=== PATIENT | male | born 1935 | race Asian ===

== ENCOUNTER 2019-11-24 12:50 | Emergency (ER) | payer OTHER ==
[~2019-11-24] VITALS: Ht 165.1 cm; Wt 59.1 kg
[2019-11-24] MEDS ORDERED: LOSA-88 PO (13:15)
[2019-11-24] MEDS ORDERED: ACETAMINOPHEN 500 MG TABLET PO ONE (14:30)
[2019-11-24 15:35] VITALS: BP 148/81
== END 2019-11-24 15:44 | disposition home or self-care (01) ==
LOC: EMS 12:53
DX: M25.541 Pain in joints of right hand (principal); I10 Essential (primary) hypertension

== ENCOUNTER 2020-08-12 15:24 | Emergency (ER) | payer OTHER ==
[~2020-08-12] VITALS: Ht 162.6 cm; Wt 51.8 kg
[~2020-08-12 15:24] MED LIST: LOSA50TA37 PO
[2020-08-12] MEDS ORDERED: AMLO-257 PO (15:40)
[2020-08-12 20:00] VITALS: BP 141/69
== END 2020-08-12 20:54 | disposition home or self-care (01) ==
LOC: EMS 15:24
DX: S16.1XXA Strain of muscle, fascia and tendon at neck level, initial encounter (principal); V49.9XXA Car occupant (driver) (passenger) injured in unspecified traffic accident, initial encounter; Y93.89 Activity, other specified; Y92.89 Other specified places as the place of occurrence of the external cause; Y99.8 Other external cause status
CPT/HCPCS: 72040; 71045-TC

== ENCOUNTER 2022-03-18 09:31 | Inpatient (IN) | payer OTHER ==
[~2022-03-18] VITALS: Ht 165.1 cm; Wt 48.0 kg
[~2022-03-18 09:31] MED LIST changes: +AMLO-257 PO; +LOSA-382 PO; -LOSA50TA37 PO
[2022-03-18] MEDS ORDERED: 0.9% SODIUM CHLORIDE 10 ML SYRINGE IVP PRN ×2 (10:15→13:00)
[2022-03-18 10:36] LABS: COVID AG,FIA SOURCE NASOPHARYNGEAL
[2022-03-18] MEDS ORDERED: SODIUM CHLORIDE 0.9% 1,000 ML IV ONE (10:45)
[2022-03-18] MEDS ORDERED: ACETAMINOPHEN 1000 MG/ISO-OSM 100 ML IV ONE (10:45)
[2022-03-18 10:47] LABS: BASOPHILS % (AUTO) 0.2 % (0.0-2.0); EOSINOPHILS % (AUTO) 0.1 % (1.0-6.0); HEMATOCRIT 31.6 % (41-53); HEMOGLOBIN 10.6 g/dL (13.5-17.5); LYMPHOCYTES # (AUTO) 0.4 K/uL (1.0-4.8); LYMPHOCYTES % (AUTO) 11.5 % (22.0-44.0); MEAN CORPUSCULAR HEMOGLOBIN 31.9 pg (26.0-34.0); MEAN CORPUSCULAR HGB CONC 33.5 G/dL (31.0-37.0); MEAN CORPUSCULAR VOLUME 95 fL (80-100); MONOCYTES # (AUTO) 0.5 K/uL (0.1-1.0); MONOCYTES % (AUTO) 14.5 % (2.0-9.0); NEUTROPHILS # (AUTO) 2.4 K/uL (1.8-7.7); NEUTROPHILS % (AUTO) 73.7 % (40.0-70.0); PLATELET COUNT (AUTO) 138 K/uL (150-450); RED BLOOD CELL COUNT(AUTO) 3.32 MIL/uL (4.50-5.90)
[2022-03-18] MEDS ORDERED: FLUT16H NASAL (10:47)
[2022-03-18] MEDS ORDERED: TAMS-13 PO (10:47)
[2022-03-18] MEDS ORDERED: APIX2.5T PO (10:47)
[2022-03-18] MEDS ORDERED: DORZ10DR10 OU (10:47)
[2022-03-18] MEDS ORDERED: BRIM15DR8 OU (10:47)
[2022-03-18] MEDS ORDERED: AMLO5TAB66 PO (10:47)
[2022-03-18] MEDS ORDERED: LATA2.5D14 OU (10:47)
[2022-03-18 10:57] LABS: CALCIUM, TOTAL 8.9 mg/dL (8.8-10.5); CREATININE 1.46 mg/dL (0.60-1.30); POTASSIUM 3.3 mmol/L (3.5-5.1)
[2022-03-18 10:57] LABS: INFLUENZA TYPE A NEGATIVE FOR TYPE A (NEGATIVE); INFLUENZA TYPE B NEGATIVE FOR TYPE B (NEGATIVE)
[2022-03-18 10:59] LABS: INR 1.1 (0.9-1.1); PROTHROMBIN TIME 11.7 SEC (9.4-11.6)
[2022-03-18 11:30] LABS: ALBUMIN 3.2 g/dL (3.4-5.0); BILIRUBIN,TOTAL 0.4 mg/dL (0.1-1.0); C-REACTIVE PROTEIN QUANT 5.7 mg/dL (0.00-0.30); MAGNESIUM 1.9 mg/dL (1.80-2.40); PHOSPHORUS 2.9 mg/dL (2.5-4.9); TOTAL PROTEIN, SERUM 6.5 g/dL (6.4-8.2)
[2022-03-18 11:36] LABS: APPEARANCE,URINE CLEAR (CLEAR); BILIRUBIN,URINE NEGATIVE (NEGATIVE); GLUCOSE, URINE (UA) NEGATIVE (NEGATIVE); KETONES,URINE TRACE mg/dL (NEGATIVE); LEUKOCYTE ESTERASE ,URINE NEGATIVE (NEGATIVE); NITRATE,URINE NEGATIVE (NEGATIVE); OCCULT BLOOD,URINE SMALL (NEGATIVE); PH,URINE 5.5 (5.0-8.0); PROTEIN,URINE 100-200,SEE CONFIRM mg/dL (NEGATIVE); SPECIFIC GRAVITIY, URINE 1.026 (1.003-1.030); UROBILINOGEN,URINE <=1.0 mg/dL (<=1.0)
[2022-03-18 11:51] LABS: BACTERIA,URINE None Seen /HPF (None Seen); RBC,URINE 0-2 /HPF (0-2); SQUAMOUS EPITHELIAL CELL,UR Few /LPF (None Seen); SULFOSALICYLIC ACID,URINE 1+ (Negative); WBC,URINE None Seen /HPF (0-5)
[2022-03-18] MEDS ORDERED: ONDANSETRON HCL 4 MG/2 ML VIAL IVP PRN ×2 (13:00→17:15)
[2022-03-18] MEDS ORDERED: ACETAMINOPHEN 325 MG TABLET PO PRN (13:00)
[2022-03-18 16:31] VITALS: BP 160/69
[2022-03-18] MEDS ORDERED: HYDROCODONE/ACETAMINOPHEN 5-325 MG TABLET PO PRN (17:15)
[2022-03-18] MEDS ORDERED: ZOLPIDEM TARTRATE 5 MG TABLET PO PRN (17:15)
[2022-03-18] MEDS ORDERED: BISACODYL 10 MG RECTAL RECTAL SUPPOSITORY PR PRN (17:15)
[2022-03-18] MEDS ORDERED: ALBUTEROL SULFATE 2.5 MG/0.5 ML NEB SOLUTION NEB PRN (17:15)
[2022-03-18] MEDS ORDERED: MAGNESIUM HYDROXIDE SUSPENSION 30 ML UDCUP PO PRN (17:15)
[2022-03-18] MEDS ORDERED: IPRATROPIUM BROMIDE 0.5 MG/2.5 ML NEB SOLUTION NEB PRN (17:15)
[2022-03-18] MEDS ORDERED: MORPHINE SULFATE 2 MG/ML SYRINGE IVP PRN (17:15)
[2022-03-18 19:05] VITALS: BP 148/61
[2022-03-18] MEDS ORDERED: POTASSIUM CHLORIDE 20 MEQ ER TABLET PO ONE (21:00)
[2022-03-18] MEDS: APIXABAN 2.5 MG TABLET PO SCH (21:52)
[2022-03-18] MEDS: BRIMONIDINE TARTRATE 0.2% 5 ML OPHTHALMIC SOLUTION OU SCH (21:53)
[2022-03-18] MEDS: DORZOLAMIDE/TIMOLOL 2-0.5% [22.3-6.8MG/ML] 10 ML OPHTHALMIC SOLUTION OU SCH (21:53)
[2022-03-18] MEDS: LATANOPROST 0.005% 2.5 ML OPHTHALMIC SOLUTION OU SCH (21:53)
[2022-03-18] MEDS: DOCUSATE SODIUM 100 MG CAPSULE PO SCH (21:54)
[2022-03-18 23:30] VITALS: BP 140/71
[2022-03-19 03:30] VITALS: BP 143/63
[2022-03-19 06:14] LABS: BASOPHILS % (AUTO) 0.1 % (0.0-2.0); EOSINOPHILS % (AUTO) 0 % (1.0-6.0); HEMATOCRIT 31.6 % (41-53); HEMOGLOBIN 10.7 g/dL (13.5-17.5); LYMPHOCYTES # (AUTO) 0.9 K/uL (1.0-4.8); MEAN CORPUSCULAR HEMOGLOBIN 32.1 pg (26.0-34.0); MEAN CORPUSCULAR VOLUME 94 fL (80-100); MONOCYTES # (AUTO) 0.6 K/uL (0.1-1.0); MONOCYTES % (AUTO) 11.3 % (2.0-9.0); NEUTROPHILS # (AUTO) 3.6 K/uL (1.8-7.7); NEUTROPHILS % (AUTO) 70.6 % (40.0-70.0); PLATELET COUNT (AUTO) 121 K/uL (150-450); RED BLOOD CELL COUNT(AUTO) 3.35 MIL/uL (4.50-5.90); RED CELL DISTRIBUTION WIDTH 13.7 % (11.5-14.5)
[2022-03-19 06:33] LABS: ALBUMIN 2.8 g/dL (3.4-5.0); BILIRUBIN,TOTAL 0.4 mg/dL (0.1-1.0); CALCIUM, TOTAL 8.4 mg/dL (8.8-10.5); CREATININE 1.17 mg/dL (0.60-1.30); POTASSIUM 3.4 mmol/L (3.5-5.1)
[2022-03-19] MEDS: FLUTICASONE PROPIONATE 50 MCG/SPRAY 16 GM NASAL SPRAY NASAL SCH (08:03)
[2022-03-19] MEDS: PANTOPRAZOLE SODIUM 40 MG/VIAL IVP SCH (08:03)
[2022-03-19] MEDS: LOSARTAN POTASSIUM 50 MG TABLET PO SCH (08:04)
[2022-03-19] MEDS: DOCUSATE SODIUM 100 MG CAPSULE PO SCH ×2 (08:04→21:59)
[2022-03-19] MEDS: TAMSULOSIN HCL 0.4 MG CAPSULE PO SCH (08:04)
[2022-03-19] MEDS: APIXABAN 2.5 MG TABLET PO SCH ×2 (08:04→21:59)
[2022-03-19] MEDS: AmLODIPine BESYLATE 5 MG TABLET PO SCH (08:04)
[2022-03-19 08:05] VITALS: BP 153/66
[2022-03-19] MEDS: BRIMONIDINE TARTRATE 0.2% 5 ML OPHTHALMIC SOLUTION OU SCH ×2 (08:05→21:59)
[2022-03-19] MEDS: LATANOPROST 0.005% 2.5 ML OPHTHALMIC SOLUTION OU SCH (08:05)
[2022-03-19] MEDS: DORZOLAMIDE/TIMOLOL 2-0.5% [22.3-6.8MG/ML] 10 ML OPHTHALMIC SOLUTION OU SCH ×2 (08:05→21:59)
[2022-03-19] MEDS: ACETAMINOPHEN 325 MG TABLET PO PRN ×2 (11:25→21:58)
[2022-03-19 11:34] VITALS: BP 130/58
[2022-03-19 16:11] VITALS: BP 126/52
[2022-03-19] MEDS ORDERED: POTASSIUM CHLORIDE 20 MEQ ER TABLET PO ONE (18:00)
[2022-03-19] MEDS: DEXTROSE 5%-0.45% SODIUM CHL 1,000 ML IV SCH (18:04)
[2022-03-19 20:17] VITALS: BP 127/48
[2022-03-19 22:20] LABS: BASOPHILS % (AUTO) 0.2 % (0.0-2.0); EOSINOPHILS % (AUTO) 0 % (1.0-6.0); HEMATOCRIT 36.8 % (41-53); HEMOGLOBIN 12.3 g/dL (13.5-17.5); LYMPHOCYTES # (AUTO) 1.8 K/uL (1.0-4.8); LYMPHOCYTES % (AUTO) 30.9 % (22.0-44.0); MEAN CORPUSCULAR HEMOGLOBIN 31.9 pg (26.0-34.0); MEAN CORPUSCULAR HGB CONC 33.6 G/dL (31.0-37.0); MEAN CORPUSCULAR VOLUME 95 fL (80-100); MONOCYTES # (AUTO) 0.4 K/uL (0.1-1.0); MONOCYTES % (AUTO) 7.6 % (2.0-9.0); NEUTROPHILS # (AUTO) 3.5 K/uL (1.8-7.7); NEUTROPHILS % (AUTO) 61.3 % (40.0-70.0); PLATELET COUNT (AUTO) 129 K/uL (150-450); RED BLOOD CELL COUNT(AUTO) 3.88 MIL/uL (4.50-5.90); RED CELL DISTRIBUTION WIDTH 13.9 % (11.5-14.5)
[2022-03-19 22:44] LABS: BILIRUBIN,TOTAL 0.3 mg/dL (0.1-1.0); CALCIUM, TOTAL 8.6 mg/dL (8.8-10.5); CREATININE 1.39 mg/dL (0.60-1.30); POTASSIUM 3.9 mmol/L (3.5-5.1); TOTAL PROTEIN, SERUM 6.8 g/dL (6.4-8.2)
[2022-03-19 23:34] LABS: C-REACTIVE PROTEIN QUANT 7.79 mg/dL (0.00-0.30)
[2022-03-19] MEDS ORDERED: REMDESIVIR 200 MG in SODIUM CHLORIDE 0.9% 250 ML IV ONE (23:45)
[2022-03-20 00:09] VITALS: BP 123/45
[2022-03-20] MEDS: DEXTROSE 5%-0.45% SODIUM CHL 1,000 ML IV SCH ×2 (02:49→15:13)
[2022-03-20] MEDS: ACETAMINOPHEN 325 MG TABLET PO PRN ×2 (05:05→09:49)
[2022-03-20 05:18] VITALS: BP 132/66
[2022-03-20 06:22] LABS: BASOPHILS % (AUTO) 0.3 % (0.0-2.0); EOSINOPHILS % (AUTO) 0.1 % (1.0-6.0); HEMATOCRIT 30.3 % (41-53); HEMOGLOBIN 10.3 g/dL (13.5-17.5); LYMPHOCYTES # (AUTO) 0.7 K/uL (1.0-4.8); LYMPHOCYTES % (AUTO) 15.8 % (22.0-44.0); MEAN CORPUSCULAR VOLUME 94 fL (80-100); MONOCYTES # (AUTO) 0.3 K/uL (0.1-1.0); MONOCYTES % (AUTO) 6.7 % (2.0-9.0); NEUTROPHILS # (AUTO) 3.6 K/uL (1.8-7.7); NEUTROPHILS % (AUTO) 77.1 % (40.0-70.0); PLATELET COUNT (AUTO) 108 K/uL (150-450); RED BLOOD CELL COUNT(AUTO) 3.22 MIL/uL (4.50-5.90); RED CELL DISTRIBUTION WIDTH 13.6 % (11.5-14.5)
[2022-03-20 07:05] LABS: ALANINE AMINOTRANSFERASE 31 U/L (12-78); ALBUMIN 2.3 g/dL (3.4-5.0); ALKALINE PHOSPHATASE 43 U/L (46-116); ANION GAP 9 mmol/L (8-16); ASPARTATE AMINOTRANSFERASE 41 U/L (15-37); BILIRUBIN,TOTAL 0.2 mg/dL (0.1-1.0); C-REACTIVE PROTEIN QUANT 6.63 mg/dL (0.00-0.30); CALCIUM, TOTAL 7.8 mg/dL (8.8-10.5); CARBON DIOXIDE 24 mmol/L (22-29); CHLORIDE 106 mmol/L (98-107); CREATININE 1.12 mg/dL (0.60-1.30); FERRITIN 814 ng/mL (26-388); GLUCOSE,RANDOM 156 mg/dL (70-110); POTASSIUM 3.8 mmol/L (3.5-5.1); SODIUM SERUM 139 mmol/L (136-145); TOTAL PROTEIN, SERUM 5.4 g/dL (6.4-8.2); UREA NITROGEN, BLOOD 16 mg/dL (7-18)
[2022-03-20 07:12] LABS: GLOMERULAR FILTR. RATE CALC > 60 mL/min (>60)
[2022-03-20 09:41] VITALS: BP 133/64
[2022-03-20] MEDS: APIXABAN 2.5 MG TABLET PO SCH ×2 (09:49→21:46)
[2022-03-20] MEDS: LOSARTAN POTASSIUM 50 MG TABLET PO SCH (09:50)
[2022-03-20] MEDS: DORZOLAMIDE/TIMOLOL 2-0.5% [22.3-6.8MG/ML] 10 ML OPHTHALMIC SOLUTION OU SCH ×2 (09:50→21:45)
[2022-03-20] MEDS: BRIMONIDINE TARTRATE 0.2% 5 ML OPHTHALMIC SOLUTION OU SCH ×2 (09:50→21:45)
[2022-03-20] MEDS: TAMSULOSIN HCL 0.4 MG CAPSULE PO SCH (09:50)
[2022-03-20] MEDS: AmLODIPine BESYLATE 5 MG TABLET PO SCH (09:50)
[2022-03-20] MEDS: FLUTICASONE PROPIONATE 50 MCG/SPRAY 16 GM NASAL SPRAY NASAL SCH (09:50)
[2022-03-20] MEDS: PANTOPRAZOLE SODIUM 40 MG/VIAL IVP SCH (09:50)
[2022-03-20] MEDS: DOCUSATE SODIUM 100 MG CAPSULE PO SCH ×2 (09:50→21:46)
[2022-03-20] MEDS ORDERED: SODIUM CHLORIDE 0.9% 1,000 ML ONE (11:36)
[2022-03-20 11:56] VITALS: BP 124/65
[2022-03-20] MEDS: CefTRIAXone 1 GM/DEXTROSE 50 ML IV SCH (12:41)
[2022-03-20] MEDS: AZITHROMYCIN 500 MG TABLET PO SCH (13:33)
[2022-03-20 15:22] VITALS: BP 110/61
[2022-03-20 20:26] VITALS: BP 129/50
[2022-03-20] MEDS: LATANOPROST 0.005% 2.5 ML OPHTHALMIC SOLUTION OU SCH (21:46)
[2022-03-20] MEDS: REMDESIVIR 100 MG in SODIUM CHLORIDE 0.9% 250 ML IV SCH (23:45)
[2022-03-21 00:10] VITALS: BP 138/59
[2022-03-21 04:19] VITALS: BP 135/63
[2022-03-21] MEDS: DEXTROSE 5%-0.45% SODIUM CHL 1,000 ML IV SCH (05:37)
[2022-03-21 05:59] LABS: BASOPHILS % (AUTO) 0.1 % (0.0-2.0); EOSINOPHILS % (AUTO) 0.1 % (1.0-6.0); HEMATOCRIT 30.4 % (41-53); HEMOGLOBIN 10.3 g/dL (13.5-17.5); LYMPHOCYTES # (AUTO) 1.1 K/uL (1.0-4.8); MEAN CORPUSCULAR HEMOGLOBIN 31.9 pg (26.0-34.0); MEAN CORPUSCULAR VOLUME 94 fL (80-100); MONOCYTES # (AUTO) 0.4 K/uL (0.1-1.0); MONOCYTES % (AUTO) 9.9 % (2.0-9.0); NEUTROPHILS # (AUTO) 2.5 K/uL (1.8-7.7); NEUTROPHILS % (AUTO) 61.9 % (40.0-70.0); PLATELET COUNT (AUTO) 102 K/uL (150-450); RED BLOOD CELL COUNT(AUTO) 3.24 MIL/uL (4.50-5.90); RED CELL DISTRIBUTION WIDTH 13.9 % (11.5-14.5)
[2022-03-21 06:31] LABS: ALANINE AMINOTRANSFERASE 32 U/L (12-78); ALBUMIN 2.3 g/dL (3.4-5.0); ALKALINE PHOSPHATASE 41 U/L (46-116); ANION GAP 12 mmol/L (8-16); ASPARTATE AMINOTRANSFERASE 42 U/L (15-37); BILIRUBIN,TOTAL 0.2 mg/dL (0.1-1.0); C-REACTIVE PROTEIN QUANT 6.27 mg/dL (0.00-0.30); CARBON DIOXIDE 23 mmol/L (22-29); CHLORIDE 105 mmol/L (98-107); CREATININE 0.91 mg/dL (0.60-1.30); FERRITIN 843 ng/mL (26-388); GLUCOSE,RANDOM 128 mg/dL (70-110); POTASSIUM 3.3 mmol/L (3.5-5.1); SODIUM SERUM 140 mmol/L (136-145); TOTAL PROTEIN, SERUM 5.4 g/dL (6.4-8.2); UREA NITROGEN, BLOOD 14 mg/dL (7-18)
[2022-03-21 06:36] LABS: GLOMERULAR FILTR. RATE CALC > 60 mL/min (>60)
[2022-03-21 08:00] VITALS: BP 136/62
[2022-03-21] MEDS: PANTOPRAZOLE SODIUM 40 MG/VIAL IVP SCH (08:36)
[2022-03-21] MEDS: DOCUSATE SODIUM 100 MG CAPSULE PO SCH ×2 (08:36→20:14)
[2022-03-21] MEDS: FLUTICASONE PROPIONATE 50 MCG/SPRAY 16 GM NASAL SPRAY NASAL SCH (08:36)
[2022-03-21] MEDS: BRIMONIDINE TARTRATE 0.2% 5 ML OPHTHALMIC SOLUTION OU SCH ×2 (08:36→21:56)
[2022-03-21] MEDS: DORZOLAMIDE/TIMOLOL 2-0.5% [22.3-6.8MG/ML] 10 ML OPHTHALMIC SOLUTION OU SCH ×2 (08:36→21:56)
[2022-03-21] MEDS: AmLODIPine BESYLATE 5 MG TABLET PO SCH (08:37)
[2022-03-21] MEDS: AZITHROMYCIN 500 MG TABLET PO SCH (08:37)
[2022-03-21] MEDS: TAMSULOSIN HCL 0.4 MG CAPSULE PO SCH (08:37)
[2022-03-21] MEDS: LOSARTAN POTASSIUM 50 MG TABLET PO SCH (08:37)
[2022-03-21] MEDS: APIXABAN 2.5 MG TABLET PO SCH ×2 (08:37→21:56)
[2022-03-21 11:58] VITALS: BP 144/55
[2022-03-21] MEDS: CefTRIAXone 1 GM/DEXTROSE 50 ML IV SCH (11:59)
[2022-03-21 15:21] VITALS: BP 139/70
[2022-03-21] MEDS ORDERED: POTASSIUM CHLORIDE 20 MEQ ER TABLET PO ONE (16:15)
[2022-03-21 20:10] VITALS: BP 139/77
[2022-03-21 21:21] LABS: C.DIFF GDH ANTIGEN, Stool Negative (Negative); C.DIFF TOXINS A&B, Stool Negative (Negative)
[2022-03-21] MEDS: LATANOPROST 0.005% 2.5 ML OPHTHALMIC SOLUTION OU SCH (21:57)
[2022-03-22] VITALS (7 sets, daily range): BP systolic 104–154; BP diastolic 56–88
[2022-03-22] MEDS: REMDESIVIR 100 MG in SODIUM CHLORIDE 0.9% 250 ML IV SCH (00:02)
[2022-03-22 06:37] LABS: BASOPHILS % (AUTO) 0.1 % (0.0-2.0); EOSINOPHILS % (AUTO) 0.2 % (1.0-6.0); HEMOGLOBIN 10.4 g/dL (13.5-17.5); LYMPHOCYTES # (AUTO) 1.2 K/uL (1.0-4.8); LYMPHOCYTES % (AUTO) 30.4 % (22.0-44.0); MEAN CORPUSCULAR HEMOGLOBIN 32.2 pg (26.0-34.0); MEAN CORPUSCULAR HGB CONC 34.7 G/dL (31.0-37.0); MEAN CORPUSCULAR VOLUME 93 fL (80-100); MONOCYTES # (AUTO) 0.4 K/uL (0.1-1.0); MONOCYTES % (AUTO) 9.6 % (2.0-9.0); NEUTROPHILS # (AUTO) 2.3 K/uL (1.8-7.7); NEUTROPHILS % (AUTO) 59.7 % (40.0-70.0); PLATELET COUNT (AUTO) 114 K/uL (150-450); RED BLOOD CELL COUNT(AUTO) 3.23 MIL/uL (4.50-5.90); RED CELL DISTRIBUTION WIDTH 13.9 % (11.5-14.5)
[2022-03-22 06:59] LABS: ALANINE AMINOTRANSFERASE 30 U/L (12-78); ALBUMIN 2.3 g/dL (3.4-5.0); ALKALINE PHOSPHATASE 43 U/L (46-116); ANION GAP 9 mmol/L (8-16); ASPARTATE AMINOTRANSFERASE 35 U/L (15-37); BILIRUBIN,TOTAL 0.3 mg/dL (0.1-1.0); C-REACTIVE PROTEIN QUANT 3.43 mg/dL (0.00-0.30); CARBON DIOXIDE 22 mmol/L (22-29); CHLORIDE 106 mmol/L (98-107); CREATININE 0.86 mg/dL (0.60-1.30); FERRITIN 935 ng/mL (26-388); GLUCOSE,RANDOM 110 mg/dL (70-110); POTASSIUM 3.5 mmol/L (3.5-5.1); SODIUM SERUM 137 mmol/L (136-145); TOTAL PROTEIN, SERUM 5.2 g/dL (6.4-8.2); UREA NITROGEN, BLOOD 11 mg/dL (7-18)
[2022-03-22 07:05] LABS: GLOMERULAR FILTR. RATE CALC > 60 mL/min (>60)
[2022-03-22] MEDS: AZITHROMYCIN 500 MG TABLET PO SCH (08:24)
[2022-03-22] MEDS: TAMSULOSIN HCL 0.4 MG CAPSULE PO SCH (08:24)
[2022-03-22] MEDS: AmLODIPine BESYLATE 5 MG TABLET PO SCH (08:24)
[2022-03-22] MEDS: APIXABAN 2.5 MG TABLET PO SCH ×2 (08:24→21:45)
[2022-03-22] MEDS: FLUTICASONE PROPIONATE 50 MCG/SPRAY 16 GM NASAL SPRAY NASAL SCH (08:25)
[2022-03-22] MEDS: DORZOLAMIDE/TIMOLOL 2-0.5% [22.3-6.8MG/ML] 10 ML OPHTHALMIC SOLUTION OU SCH ×2 (08:25→21:46)
[2022-03-22] MEDS: BRIMONIDINE TARTRATE 0.2% 5 ML OPHTHALMIC SOLUTION OU SCH ×2 (08:25→21:46)
[2022-03-22] MEDS: DOCUSATE SODIUM 100 MG CAPSULE PO SCH ×2 (08:25→21:00)
[2022-03-22] MEDS: PANTOPRAZOLE SODIUM 40 MG/VIAL IVP SCH (08:25)
[2022-03-22] MEDS: LOSARTAN POTASSIUM 50 MG TABLET PO SCH (08:31)
[2022-03-22] MEDS: CefTRIAXone 1 GM/DEXTROSE 50 ML IV SCH (12:51)
[2022-03-22] MEDS: LATANOPROST 0.005% 2.5 ML OPHTHALMIC SOLUTION OU SCH (21:46)
[2022-03-23] MEDS: REMDESIVIR 100 MG in SODIUM CHLORIDE 0.9% 250 ML IV SCH ×2 (00:01→23:35)
[2022-03-23 06:30] VITALS: BP 154/65
[2022-03-23 07:21] LABS: BASOPHILS % (AUTO) 0.2 % (0.0-2.0); EOSINOPHILS % (AUTO) 0.5 % (1.0-6.0); HEMATOCRIT 31.8 % (41-53); LYMPHOCYTES # (AUTO) 1.1 K/uL (1.0-4.8); LYMPHOCYTES % (AUTO) 30.5 % (22.0-44.0); MEAN CORPUSCULAR HEMOGLOBIN 31.7 pg (26.0-34.0); MEAN CORPUSCULAR HGB CONC 34.5 G/dL (31.0-37.0); MEAN CORPUSCULAR VOLUME 92 fL (80-100); MONOCYTES # (AUTO) 0.4 K/uL (0.1-1.0); MONOCYTES % (AUTO) 11.4 % (2.0-9.0); NEUTROPHILS # (AUTO) 2.1 K/uL (1.8-7.7); NEUTROPHILS % (AUTO) 57.4 % (40.0-70.0); PLATELET COUNT (AUTO) 145 K/uL (150-450); RED BLOOD CELL COUNT(AUTO) 3.46 MIL/uL (4.50-5.90); RED CELL DISTRIBUTION WIDTH 13.7 % (11.5-14.5)
[2022-03-23 07:46] LABS: ALANINE AMINOTRANSFERASE 56 U/L (12-78); ALBUMIN 2.4 g/dL (3.4-5.0); ALKALINE PHOSPHATASE 51 U/L (46-116); ANION GAP 8 mmol/L (8-16); ASPARTATE AMINOTRANSFERASE 68 U/L (15-37); BILIRUBIN,TOTAL 0.4 mg/dL (0.1-1.0); C-REACTIVE PROTEIN QUANT 3.34 mg/dL (0.00-0.30); CALCIUM, TOTAL 8.3 mg/dL (8.8-10.5); CARBON DIOXIDE 25 mmol/L (22-29); CHLORIDE 105 mmol/L (98-107); CREATININE 0.97 mg/dL (0.60-1.30); FERRITIN 957 ng/mL (26-388); GLUCOSE,RANDOM 99 mg/dL (70-110); POTASSIUM 3.6 mmol/L (3.5-5.1); SODIUM SERUM 138 mmol/L (136-145); TOTAL PROTEIN, SERUM 5.5 g/dL (6.4-8.2); UREA NITROGEN, BLOOD 13 mg/dL (7-18)
[2022-03-23 07:49] LABS: GLOMERULAR FILTR. RATE CALC > 60 mL/min (>60)
[2022-03-23] MEDS: DOCUSATE SODIUM 100 MG CAPSULE PO SCH ×2 (09:00→20:51)
[2022-03-23] MEDS: AmLODIPine BESYLATE 5 MG TABLET PO SCH (10:04)
[2022-03-23] MEDS: AZITHROMYCIN 500 MG TABLET PO SCH (10:04)
[2022-03-23] MEDS: LOSARTAN POTASSIUM 50 MG TABLET PO SCH (10:04)
[2022-03-23] MEDS: TAMSULOSIN HCL 0.4 MG CAPSULE PO SCH (10:04)
[2022-03-23] MEDS: APIXABAN 2.5 MG TABLET PO SCH ×2 (10:04→20:49)
[2022-03-23] MEDS: DORZOLAMIDE/TIMOLOL 2-0.5% [22.3-6.8MG/ML] 10 ML OPHTHALMIC SOLUTION OU SCH ×2 (10:05→20:50)
[2022-03-23] MEDS: FLUTICASONE PROPIONATE 50 MCG/SPRAY 16 GM NASAL SPRAY NASAL SCH (10:05)
[2022-03-23] MEDS: BRIMONIDINE TARTRATE 0.2% 5 ML OPHTHALMIC SOLUTION OU SCH ×2 (10:05→20:50)
[2022-03-23] MEDS: PANTOPRAZOLE SODIUM 40 MG/VIAL IVP SCH (10:06)
[2022-03-23] MEDS ORDERED: SODIUM CHLORIDE 0.9% 500 ML IV ONE (11:41)
[2022-03-23] MEDS: CefTRIAXone 1 GM/DEXTROSE 50 ML IV SCH (12:28)
[2022-03-23 12:45] VITALS: BP 120/81
[2022-03-23 14:06] LABS: S PNEUMO SOURCE Urine; STREP PNEUMONIAE AG URINE Negative (Negative)
[2022-03-23 16:06] LABS: LEGIONELLA PNEUMO AG URINE Negative (Negative)
[2022-03-23 16:20] VITALS: BP 134/68
[2022-03-23 19:35] VITALS: BP 136/64
[2022-03-23] MEDS: LATANOPROST 0.005% 2.5 ML OPHTHALMIC SOLUTION OU SCH (20:51)
[2022-03-23 23:40] VITALS: BP 124/71
[2022-03-24 04:10] VITALS: BP 155/66
[2022-03-24 08:00] VITALS: BP 144/70
[2022-03-24] MEDS: DOCUSATE SODIUM 100 MG CAPSULE PO SCH (09:47)
[2022-03-24] MEDS: DORZOLAMIDE/TIMOLOL 2-0.5% [22.3-6.8MG/ML] 10 ML OPHTHALMIC SOLUTION OU SCH (09:54)
[2022-03-24] MEDS: BRIMONIDINE TARTRATE 0.2% 5 ML OPHTHALMIC SOLUTION OU SCH (09:55)
[2022-03-24] MEDS: FLUTICASONE PROPIONATE 50 MCG/SPRAY 16 GM NASAL SPRAY NASAL SCH (09:56)
[2022-03-24] MEDS: AZITHROMYCIN 500 MG TABLET PO SCH (09:57)
[2022-03-24] MEDS: PANTOPRAZOLE SODIUM 40 MG/VIAL IVP SCH (09:57)
[2022-03-24] MEDS: AmLODIPine BESYLATE 5 MG TABLET PO SCH (09:57)
[2022-03-24] MEDS: LOSARTAN POTASSIUM 50 MG TABLET PO SCH (09:57)
[2022-03-24] MEDS: APIXABAN 2.5 MG TABLET PO SCH (09:57)
[2022-03-24] MEDS: TAMSULOSIN HCL 0.4 MG CAPSULE PO SCH (10:05)
[2022-03-24 12:00] VITALS: BP 147/78
[2022-03-24] MEDS: CefTRIAXone 1 GM/DEXTROSE 50 ML IV SCH (12:56)
== END 2022-03-24 14:30 | disposition home or self-care (01) | DRG 720 ==
LOC: EMS 09:31 → 5N 13:13
PROVIDERS: ADMIT Hospitalist; ATTEND Hospitalist
PROC: XW033E5 Introduction of Remdesivir Anti-infective into Peripheral Vein, Percutaneous Approach, New Technology Group 5 (ICD-10-PCS; principal; 2022-03-19)
DX: A41.89 Other specified sepsis (principal); U07.1 COVID-19; E44.0 Moderate protein-calorie malnutrition; D69.6 Thrombocytopenia, unspecified; D64.9 Anemia, unspecified; N40.0 Benign prostatic hyperplasia without lower urinary tract symptoms; E87.6 Hypokalemia; I10 Essential (primary) hypertension; D72.810 Lymphocytopenia; Z68.1 Body mass index [BMI] 19.9 or less, adult; Z79.899 Other long term (current) drug therapy; Z98.41 Cataract extraction status, right eye
CPT/HCPCS: 71045; 80053; 81001; 81002; 82550; 82728; 83605; 83615; 83735; 83880; 84100; 84145; 84484; 85025; 85379; 85610; 86140; 86738; 87040; 87324; 87449; 87804; 87899; 93005; 97162; 97163; 99285; C9113; J0131; J0696; J7030; J7040; J7050; Q9967; 36415-L1; 36415-TC